=== PATIENT | female | born 1985 | race African-American/Black ===

== ENCOUNTER 2018-10-27 09:44 | Emergency (ER) | payer BC, MEDICARE ==
[~2018-10-27] VITALS: Ht 165.1 cm; Wt 81.8 kg
[2018-10-27 10:08] VITALS: BP 128/89; TEMP 99
[2018-10-27] MEDS ORDERED: DESYREL 50MG50 MG PO (10:24)
[2018-10-27] MEDS ORDERED: CELEXA10 MG PO (10:24)
[2018-10-27 10:31] LABS: BASO % 0.6 % (0.0-2.0); EOS % 0.2 % (0-4.0); GRAN # 3.5 (1.4-6.5); GRAN % 55.9 % (42.2-75.2); HEMATOCRIT 36.8 % (37.0-47.0); HEMOGLOBIN 11.6 g/dl (12.5-16.0); LYMPH # 2.2 (1.2-3.4); LYMPH % 35.1 % (20.0-51.0); MEAN CELL VOLUME 82 fl (80.0-100.0); MEAN CORPUSCULAR HEMOGLOBIN 26 pg (27.0-31.0); MEAN CORPUSCULAR HGB CONC 32 g/dl (33.0-37.0); MEAN PLATELET VOLUME 10.4 fl (7.4-10.4); MONO # 0.5 (0.1-0.6); PLATELET COUNT 306 K/mm3 (130-400); RED BLOOD COUNT 4.47 M/mm3 (4.10-5.30); REDCELL DISTRIBUTION WIDTH-CV 16.1 % (11.5-14.5)
[2018-10-27 10:42] LABS: CALCIUM 9.2 mg/dL (8.4-10.2); CREATININE, serum 0.81 (0.52-1.25); POTASSIUM 3.7 mmol/L (3.4-5.0)
[2018-10-27] MEDS ORDERED: FLEXERIL 1010 MG/TAB PO (10:50)
[2018-10-27 10:52] VITALS: PULSE 78
== END 2018-10-27 10:57 | disposition home or self-care (01) ==
LOC: COL.ER 09:44
PROVIDERS: Physician Assistant
DX: M79.672 Pain in left foot (principal); Z98.51 Tubal ligation status